=== PATIENT | male | born 1960 | race Caucasian/White ===

== ENCOUNTER 2019-04-19 16:29 | Emergency (ER) | payer BC, MEDICAID, OTHER ==
[~2019-04-19] VITALS: Ht 170.2 cm; Wt 86.2 kg
[~2019-04-19 16:29] MED LIST: ASPI-605 PO; METO25TA20 PO; Nitroglycerin SL; SIMV20TA2 PO
[2019-04-19 16:43] VITALS: BP 154/79
[2019-04-19] MEDS ORDERED: TDAP [DIPH/PERTUSSIS/TET] 0.5 ML VIAL IM ONE (17:14)
[2019-04-19] MEDS ORDERED: LIDOCAINE 1%-EPI 1:100,000 20 ML VIAL ONE (17:14)
[2019-04-19] MEDS ORDERED: ACETAMINOPHEN 325 MG TABLET ONE (17:15)
[2019-04-19] MEDS: TDAP [DIPH/PERTUSSIS/TET] 0.5 ML VIAL IM ONE (17:31)
[2019-04-19] MEDS: ACETAMINOPHEN 325 MG TABLET PO ONE (17:31)
[2019-04-19] MEDS: LIDOCAINE 1%-EPI 1:100,000 20 ML VIAL TP ONE (17:31)
== END 2019-04-19 18:48 | disposition home or self-care (01) ==
LOC: ER 16:39
DX: S01.01XA Laceration without foreign body of scalp, initial encounter (principal); F17.200 Nicotine dependence, unspecified, uncomplicated; Z79.899 Other long term (current) drug therapy; Z79.82 Long term (current) use of aspirin; W22.8XXA Striking against or struck by other objects, initial encounter; Y93.89 Activity, other specified; Y92.89 Other specified places as the place of occurrence of the external cause; Y99.8 Other external cause status
CPT/HCPCS: 12002; 90471; 90715; 99283; A6403 ×3; J3490

== ENCOUNTER 2019-05-05 16:00 | Emergency (ER) | payer MEDICAID ==
[~2019-05-05] VITALS: Ht 170.2 cm; Wt 86.2 kg
[2019-05-05 16:21] VITALS: BP 140/75
== END 2019-05-05 16:45 | disposition home or self-care (01) ==
LOC: ER 16:02
DX: S01.01XD Laceration without foreign body of scalp, subsequent encounter (principal); Z79.82 Long term (current) use of aspirin; Z79.899 Other long term (current) drug therapy; V09.9XXD Pedestrian injured in unspecified transport accident, subsequent encounter

== ENCOUNTER 2024-05-17 05:52 | Emergency (ER) | payer MEDICARE, OTHER ==
[~2024-05-17] VITALS: Ht 175.3 cm; Wt 88.5 kg
[2024-05-17 06:05] VITALS: BP 131/71; TEMP 98; O2SAT 99
[2024-05-17] MEDS ORDERED: HEPARIN SODIUM, PORCINE 5000 UNITS/1 ML VIAL ONE (06:16)
[2024-05-17] MEDS ORDERED: ASPIRIN 81 MG TAB.CHEW ONE (06:16)
[2024-05-17] MEDS: HEPARIN SODIUM, PORCINE 5000 UNITS/1 ML VIAL IV ONE (06:19)
[2024-05-17] MEDS: ASPIRIN 81 MG TAB.CHEW PO ONE (06:20)
[2024-05-17 06:23] LABS: BASOPHILS # (AUTO) 0.1 K/uL (0.0-0.2); BASOPHILS % (AUTO) 0.9 % (0.0-2.0); EOSINOPHILS # (AUTO) 0.1 K/uL (0.0-0.7); EOSINOPHILS % (AUTO) 1.1 % (0.0-6.0); HEMATOCRIT 45 % (39-51); HEMOGLOBIN 15.7 g/dL (13.5-17.5); LYMPHOCYTES # (AUTO) 5.1 K/uL (0.8-4.8); LYMPHOCYTES % (AUTO) 52.7 % (20.0-44.0); MEAN CORPUSCULAR HEMOGLOBIN 31 PG (26.0-33.0); MEAN CORPUSCULAR HGB CONC 35 g/dl (31.0-36.0); MEAN CORPUSCULAR VOLUME 89 fL (80-96); MONOCYTES # (AUTO) 0.9 K/uL (0.1-1.30); MONOCYTES % (AUTO) 9.6 % (2.0-12.0); NEUTROPHILS # (AUTO) 3.5 K/uL (1.8-8.9); NEUTROPHILS % (AUTO) 35.7 % (43.0-81.0); PLATELET COUNT (AUTO) 269 K/uL (150-450); RED BLOOD CELL COUNT(AUTO) 5.08 MIL/uL (4.5-6.0); RED CELL DISTRIBUTION WIDTH 13.2 % (11.5-15.0); WHITE BLOOD COUNT (AUTO) 9.8 K/uL (4.3-11.0)
[2024-05-17 07:36] LABS: CALCIUM, SERUM 9.3 mg/dL (8.5-10.1); CARBON DIOXIDE 29 mmol/L (21-32); CHLORIDE 104 mmol/L (98-107); GLUCOSE 138 mg/dL (74-106); POTASSIUM 3.7 mmol/L (3.5-5.1); SODIUM SERUM 141 mmol/L (136-145); UREA NITROGEN, BLOOD 16 mg/dL (7-18)
== END 2024-05-17 06:31 | disposition short-term general hospital (02) ==
LOC: ER 05:59
DX: I21.3 ST elevation (STEMI) myocardial infarction of unspecified site (principal); I10 Essential (primary) hypertension; E78.5 Hyperlipidemia, unspecified; I49.3 Ventricular premature depolarization; F17.200 Nicotine dependence, unspecified, uncomplicated; Z79.82 Long term (current) use of aspirin
CPT/HCPCS: 99291; 96374; 93005; 71045; 85025; 80048; 36415; 84484; J1644